=== PATIENT | female | born 1970 | race Caucasian/White ===

== ENCOUNTER 2021-05-07 16:04 | Emergency (ER) | payer MEDICAID, SELFPAY ==
[2021-05-07] VITALS (7 sets, daily range): BP systolic 109–123; BP diastolic 70–85; PULSE 64–88; RESP 15–98; TEMP 36.7; O2SAT 94–100; BMI 19.5
--- NOTE | 2021-05-07 17:07 | ECG_ITS ---
[facility] Test Date: 2021-05-07 Pat Name: Allison Watts Department: Room: Gender: Female Cardiology Rn: : 1970 Requested By: Ahsan Hurtado Order Number: [id number] Reading MD: ANNIE PABON Measurements Intervals [place] Rate: 100 P: 76 [place]: 98 QRS: 71 QRSD: 94 T: 48 QT: 340 QTc: 439 Interpretive Statements SINUS TACHYCARDIA WITH SHORT [place] INTERVAL INCOMPLETE RIGHT BUNDLE BRANCH BLOCK [90+ ms QRS DURATION, TERMINAL R IN V1/V2, 40+ ms S IN I/aVL/V4/V5/V6] NONSPECIFIC ST & T-WAVE ABNORMALITY ABNORMAL RHYTHM ECG No previous ECG available for comparison Electronically Signed On 05-07-2021 20:02:47 CDT by ANNIE PABON [email or web address]
--- NOTE | 2021-05-07 17:07 | XRR_ITS ---
PROCEDURE INFORMATION: Exam: XR Chest Exam date and time: 05/07/2021 5:07 PM Age: 50 years old Clinical indication: Pain; Left-sided; Additional info: Chest pain TECHNIQUE: Imaging protocol: XR of the chest. Views: 1 view. Total images: 1 [place]PAR[place] [facility] [place] 2 views 06/17/2019 3:40 PM FINDINGS: Lungs: No visible active interstitial or alveolar airspace disease. Hyperinflation and query history of reactive airway disease/asthma/chronic bronchitis. Pleural spaces: Unremarkable. No pleural effusion. No pneumothorax. Heart/Mediastinum: Unremarkable. No cardiomegaly. Bones/joints: Scoliosis. Organs: Status post cholecystectomy. XR/XR chest 1V portable [id number] IMPRESSION: 1. Nonacute. 2. Hyperinflation.
--- NOTE | 2021-05-07 17:32 | PC.NURSE ---
PATIENT CONNECTED TO SPEECH TEACHER.
--- NOTE | 2021-05-07 17:44 | ED_ITS ---
Documented by User: Ahsan Valdez DO 05/13/21 07:23 HPI - Chest Pain General: Chief Complaint: Chest Pain Stated Complaint: Chest pain Time Seen by Provider: 05/07/21 17:18 History of Present Illness: HPI narrative: 50-year-old female presents emergency room complaining of chest and abdominal pain that began around 1 PM today. Patient denies any radiation of the pain she does have some nausea. Patient reports that she has an excessively high pain tolerance and cannot rate the pain for us. She denies any dyspnea associated with this. She not note any aggravating or relieving factors. MD complaint: chest pain Onset (ago): week(s) Timing of current episode: episodic Onset: during rest Pain location: substernal Pain radiation: none Severity: moderate Quality: aching and heaviness Relieving factors: nothing Exacerbating factors: nothing Associated symptoms: Deny abdominal pain, diaphoresis, dyspnea, fever(s), leg edema, nausea, palpitations, sense of impending doom, syncope or vomiting Treatment prior to arrival: none Review of Systems Const: Denies: fever(s) or diaphoresis ENMT: Denies: throat pain, ear or mastoid pain, nasal discharge or nasal congestion Card: Denies: palpitations or syncope Resp: Denies: dyspnea GI: Denies: abdominal pain, nausea or vomiting : Denies: flank pain, difficulty voiding, dysuria, urinary frequency or urinary urgency Skin/Breast: Denies: rash or pruritus Physical Exam Const: COMMON NORMALS: no acute distress GENERAL APPEARANCE: cooperative and comfortable ORIENTATION/CONSCIOUSNESS: Yes awake, Yes oriented to person, Yes oriented to place and Yes oriented to time HENMT: COMMON NORMALS: normocephalic and atraumatic HEAD & SCALP: normocephalic and atraumatic Neck/C-Spine: COMMON NORMALS: no JVD Resp: COMMON NORMALS: normal respiratory effort, No retractions, No use of accessory muscles and clear to auscultation bilaterally AUSCULTATION: clear to auscultation bilaterally Cardio: COMMON NORMALS: no JVD, regular rate, regular rhythm and No murmurs present (Cardio) RATE: regular rate RHYTHM: regular rhythm GI: COMMON NORMALS: Soft to palpation and No hepatosplenomegaly present AUSCULTATION: Yes normoactive bowel sounds PALPATION: Yes Soft to palpation, No Tenderness to palpation present (GI), No Guarding due to palpation present (GI) and Yes No hepatosplenomegaly present Extremity: COMMON NORMALS: normal to inspection, capillary refill normal, no clubbing, cyanosis or edema, no calf tenderness and no pedal edema Neuro: SENSORIUM/ORIENTATION: Yes oriented to person, Yes oriented to place and Yes oriented to time Skin: COMMON NORMALS: no rashes or lesions noted GENERAL SKIN EXAM: no rashes or lesions noted Course Vital Signs: Vital signs: Vital Signs Temperature 98.1 F 05/07/21 16:39 Pulse Rate 81 05/07/21 21:22 Respiratory Rate 16 05/07/21 21:22 Blood Pressure 120/85 05/07/21 21:22 Pulse Oximetry 97 05/07/21 21:22 MDM - Chest Pain MDM Narrative: Medical decision making narrative: Care turned over to Dr. Ruiz at change of shift see his note from diagnosis disposition Lab Data: Labs: Lab Results 05/07/21 05/07/21 05/07/21 17:40 17:43 17:43 WBC 8.0 10^3/uL 10^3/ uL (4.0-10.0) RBC 4.39 10^6/uL 10^6 /uL (4.1-5.3) Hgb 13.8 g/dL g/dL (11.5-15.3) Hct 41.0 % % (37.0-47.0) MCV 93.4 fl fl (81-99) MCH 31.4 pg pg (28.0-34.0) MCHC 33.7 g/dL g/dL (30.0-36.0) RDW 12.3 % % (12.1-15.1) Plt Count 311 10^3/cmm 10^3 /cmm (130-400) MPV 9.8 fL fL (7.4-10.4) Neut % (Auto) 49.8 % % Lymph % (Auto) 42.9 % % [place] % (Auto) 6.0 % % Eos % (Auto) 0.7 % % Baso % (Auto) 0.5 % % Neut # (Auto) 3.99 10^3/uL 10^3 /uL (1.8-7.7) Lymph # (Auto) 3.4 10^3/uL 10^3/ uL (0.8-4.8) [place] # (Auto) 0.5 10^3/uL 10^3/ uL (0.2-0.9) Eos # (Auto) 0.1 10^3/uL 10^3/ uL (0.0-0.8) Baso # (Auto) 0.0 10^3/uL 10^3/ uL (0.0-0.1) Nucleated RBC % (a uto) 0 % % Nucleated RBCs # 0.0 /100WBC /100W BC D-Dimer 0.31 ug/mIFEU ug/ mIFEU (0-0.59) Sodium 135 mmol/L L mmol /L (136-145) Potassium 4.0 mmol/L mmol/L (3.5-5.1) Chloride 101 mmol/L mmol/L (98-107) Carbon Dioxide 23 mmol/L mmol/L (22-29) Anion Gap 15.0 (5-19) BUN 9 mg/dL mg/dL (6-20) Creatinine 0.6 mg/dL mg/dL (0.5-0.9) GFR Calculation 106.7 mL/min mL/m in (90-130) Glucose 88 mg/dL mg/dL (65-115) Calculated Osmolal ity 278 mOsm/kg L mOs m/kg (285-295) Calcium 8.8 mg/dL mg/dL (8.5-10.5) Total Bilirubin 0.3 mg/dL mg/dL (0.15-1.2) AST 14 U/L U/L (0-32) ALT 8 U/L U/L (0-33) Alkaline Phosphata se 64 IU/L IU/L (35-105) Troponin T Baselin e Troponin T 120 Min [place] Delta Troponin T Total Protein 6.4 g/dL L g/dL (6.6-8.7) Albumin 4.0 g/dL g/dL (3.5-5.2) Globulin 2.4 g/dL g/dL (1.3-4.6) 05/07/21 05/07/21 17:43 20:00 WBC RBC Hgb Hct MCV MCH MCHC RDW Plt Count MPV Neut % (Auto) Lymph % (Auto) [place] % (Auto) Eos % (Auto) Baso % (Auto) Neut # (Auto) Lymph # (Auto) [place] # (Auto) Eos # (Auto) Baso # (Auto) Nucleated RBC % (a uto) Nucleated RBCs # D-Dimer Sodium Potassium Chloride Carbon Dioxide Anion Gap BUN Creatinine GFR Calculation Glucose Calculated Osmolal ity Calcium Total Bilirubin AST ALT Alkaline Phosphata se Troponin T Baselin e 6 ng/L ng/L (0-10) Troponin T 120 Min [place] 7.24 ng/L ng/L (0-10) Delta Troponin T 1.24 ABS# ABS# (0-10) Total Protein Albumin Globulin Discharge Plan Discharge Patient Disposition: Home Clinical Impression: Back pain Condition: Stable Discharge Orders: Discharge ED (Routine); Ordered 05/07/21 Ordered By: Ximena Ruiz Discharge Diet: Advance as tolerated Discharge Activity: Resume usual activity Patient Instructions: Chest Pain (ED), Back Pain (ED) Activity Restrictions/Additional Instructions: Come back to the emergency room you have any worsening chest pain, shortness of breath, palpitation, focal weakness in the arms or legs, or any new concerning complaints. Stand Alone Forms: Work/School Release Sign Out Sign Out Data: Patient Sign Out occurred on 05/07/21 at 18:15. Patient's care was discussed, and care was transferred from to Ximena Ruiz MD. Coding Level of Care Code ED Aircraft Riveter for Chg Fwd Exam Comprehensive Documented by User: Ximena Ruiz MD 05/07/21 21:04 HPI - Chest Pain General: Chief Complaint: Chest Pain Stated Complaint: Chest pain Time Seen by Provider: 05/07/21 17:18 Course Vital Signs: Vital signs: Vital Signs Temperature 98.1 F 05/07/21 16:39 Pulse Rate 81 05/07/21 21:22 Respiratory Rate 16 05/07/21 21:22 Blood Pressure 120/85 05/07/21 21:22 Pulse Oximetry 97 05/07/21 21:22 MDM - Chest Pain MDM Narrative: Medical decision making narrative: 50-year-old female presents the emergency room with left-sided back pain that radiates towards the front. On arrival, patient appears to be in moderate distress. Per nurse, patient almost passed out twice in the ED complaining of back pain radiating to her front chest. Work-up include troponin x2 - today. D-dimer within normal limit. CT chest did not show any signs of dissection. At the present time, patient reports symptomatic improvement. Was observed in the emergency room with hemodynamically stable. No suspicion for cardiac sudden cardiac . EKG non-ischemic. Patient tolerated PO in the Ed. Disposition: Discharge. Patient counseled regarding diagnostic impression, treatment plan. Patient given ED strict return precautions to return for continuation, worsening, or development of new symptoms. Instructed to f/u w/ PCP regarding symptoms today. Patient verbalized understanding. Lab Data: Labs: Lab Results 05/07/21 05/07/21 05/07/21 17:40 17:43 17:43 WBC 8.0 10^3/uL 10^3/ uL (4.0-10.0) RBC 4.39 10^6/uL 10^6 /uL (4.1-5.3) Hgb 13.8 g/dL g/dL (11.5-15.3) Hct 41.0 % % (37.0-47.0) MCV 93.4 fl fl (81-99) MCH 31.4 pg pg (28.0-34.0) MCHC 33.7 g/dL g/dL (30.0-36.0) RDW 12.3 % % (12.1-15.1) Plt Count 311 10^3/cmm 10^3 /cmm (130-400) MPV 9.8 fL fL (7.4-10.4) Neut % (Auto) 49.8 % % Lymph % (Auto) 42.9 % % [place] % (Auto) 6.0 % % Eos % (Auto) 0.7 % % Baso % (Auto) 0.5 % % Neut # (Auto) 3.99 10^3/uL 10^3 /uL (1.8-7.7) Lymph # (Auto) 3.4 10^3/uL 10^3/ uL (0.8-4.8) [place] # (Auto) 0.5 10^3/uL 10^3/ uL (0.2-0.9) Eos # (Auto) 0.1 10^3/uL 10^3/ uL (0.0-0.8) Baso # (Auto) 0.0 10^3/uL 10^3/ uL (0.0-0.1) Nucleated RBC % (a uto) 0 % % Nucleated RBCs # 0.0 /100WBC /100W BC D-Dimer 0.31 ug/mIFEU ug/ mIFEU (0-0.59) Sodium 135 mmol/L L mmol /L (136-145) Potassium 4.0 mmol/L mmol/L (3.5-5.1) Chloride 101 mmol/L mmol/L (98-107) Carbon Dioxide 23 mmol/L mmol/L (22-29) Anion Gap 15.0 (5-19) BUN 9 mg/dL mg/dL (6-20) Creatinine 0.6 mg/dL mg/dL (0.5-0.9) GFR Calculation 106.7 mL/min mL/m in (90-130) Glucose 88 mg/dL mg/dL (65-115) Calculated Osmolal ity 278 mOsm/kg L mOs m/kg (285-295) Calcium 8.8 mg/dL mg/dL (8.5-10.5) Total Bilirubin 0.3 mg/dL mg/dL (0.15-1.2) AST 14 U/L U/L (0-32) ALT 8 U/L U/L (0-33) Alkaline Phosphata se 64 IU/L IU/L (35-105) Troponin T Baselin e Troponin T 120 Min [place] Delta Troponin T Total Protein 6.4 g/dL L g/dL (6.6-8.7) Albumin 4.0 g/dL g/dL (3.5-5.2) Globulin 2.4 g/dL g/dL (1.3-4.6) 05/07/21 05/07/21 17:43 20:00 WBC RBC Hgb Hct MCV MCH MCHC RDW Plt Count MPV Neut % (Auto) Lymph % (Auto) [place] % (Auto) Eos % (Auto) Baso % (Auto) Neut # (Auto) Lymph # (Auto) [place] # (Auto) Eos # (Auto) Baso # (Auto) Nucleated RBC % (a uto) Nucleated RBCs # D-Dimer Sodium Potassium Chloride Carbon Dioxide Anion Gap BUN Creatinine GFR Calculation Glucose Calculated Osmolal ity Calcium Total Bilirubin AST ALT Alkaline Phosphata se Troponin T Baselin e 6 ng/L ng/L (0-10) Troponin T 120 Min [place] 7.24 ng/L ng/L (0-10) Delta Troponin T 1.24 ABS# ABS# (0-10) Total Protein Albumin Globulin Imaging Data^: Other Imaging: Radiologist's impression: [employer] [place] [id number] Scan ReportSigned Patient: Allison Watts #: [id number]: 1970Acct#:[id number]/Sex: 50 / FADM Date: 05/07/21Loc: ERRoom/Bed:Attending Dr: Ordering Provider/Ordering MD: Ximena Ruiz MD Date of Service: 05/07/21 Procedure(s): CT angio chest w abd pel w con Accession Number(s): [id number] Report Number: [id number] PROCEDURE INFORMATION: Exam: CTA Chest With amd without Contrast Exam date and time: 05/07/2021 6:28 PM Age: 50 years old Clinical indication: Abdominal tenderness; Abdominal pain; Shortness of breath; Sternal or substernal pain; Prior surgery; Surgery type: Gb, ; Additional info: Evaluate for dissection TECHNIQUE: Imaging protocol: Computed tomographic angiography of the chest with contrast. 3D rendering (Not supervised by radiologist): MIP and/or 3D reconstructed images were created by the technologist. Total images: 670 Radiation optimization: All CT scans at this facility use at least one of these dose optimization techniques: automated exposure control; mA and/or kV adjustment per patient size (includes targeted exams where dose is matched to clinical indication); or iterative reconstruction. Contrast material: OMNI 350; Contrast volume: 95 ml; Contrast route: INTRAVENOUS (IV); COMPARISON: CR (CHEST, ) 05/07/2021 5:18 PM RADIATION DOSE METRICS: Total DLP (mGy-cm): 962.97 FINDINGS: Pulmonary arteries: No visible evidence of pulmonary embolism/pulmonary arterial thrombus. Aorta: The thoracic aorta is nonaneurysmal. No visible intimal flap or dissection. Lungs: No visible active interstitial or alveolar airspace disease. Minimal centrilobular emphysema. Pleural spaces: Unremarkable. No pneumothorax. No pleural effusion. Heart: Cardiac size within normal limits. No visible pericardial effusion. No visible coronary artery disease. Lymph nodes: No visible evidence of active mediastinal or hilar lymphadenopathy. Bones/joints: No visible active or acute osseous pathology. Minimal scoliosis. Soft tissues: Unremarkable. IMPRESSION: No visible evidence of active cardiopulmonary/cardiothoracic pathologic process. PROCEDURE INFORMATION: Exam: CT Abdomen And Pelvis With Contrast Exam date and time: 05/07/2021 6:28 PM Age: 50 years old Clinical indication: Abdominal tenderness; Abdominal pain; Shortness of breath; Sternal or substernal pain; Prior surgery; Surgery type: Gb, ; Additional info: Evaluate for dissection TECHNIQUE: Imaging protocol: Computed tomography of the abdomen and pelvis with contrast. Radiation optimization: All CT scans at this facility use at least one of these dose optimization techniques: automated exposure control; mA and/or kV adjustment per patient size (includes targeted exams where dose is matched to clinical indication); or iterative reconstruction. Contrast material: OMNI 350; Contrast volume: 95 ml; Contrast route: INTRAVENOUS (IV); COMPARISON: CR (CHEST, ) 05/07/2021 5:18 PM RADIATION DOSE METRICS: Total DLP (mGy-cm): 962.97 FINDINGS: Liver: No visible hepatic mass or cystic structure. Gallbladder and bile ducts: Status post cholecystectomy. Pancreas: Pancreas is unremarkable. No visible pancreatic ductal ectasia. Spleen: Small splenule. Spleen otherwise unremarkable. Adrenal glands: Adrenal glands unremarkable. Kidneys and ureters: No hydronephrosis or perinephric fluid. No visible nephrolithiasis or visible ureterolithiasis. Stomach and bowel: Findings raising suspicion for active gastroenteritis with gastric mucosal thickening, duodenal, and jejunal small bowel mucosal thickening with increased enhancement. Nonobstructive bowel pattern. No visible associated significant adynamic or reactive ileus. No findings of diverticulosis coli or diverticulitis. Appendix: The appendix is visualized and appears noninflamed. Intraperitoneal space: No visible evidence of mesenteric lymphadenitis or active mesenteritis/panniculitis. No visible pneumoperitoneum or intraperitoneal ascites. Vasculature: The abdominal aorta is nonaneurysmal. No intimal flap or dissection. Lymph nodes: No current visible evidence of active mesenteric or retroperitoneal lymphadenopathy. Urinary bladder: Urinary bladder unremarkable. Reproductive: Unremarkable as visualized. Bones/joints: No visible active or acute osseous pathology. Mild scoliotic curvature. Soft tissues: Unremarkable. CT/CT angio chest w abd pel w con IMPRESSION: Findings raising suspicion for active gastroenteritis with gastric mucosal thickening, duodenal, and jejunal small bowel mucosal thickening with increased enhancement. Radiation Dose CTDIVOL = (mGy): DLP = 962.97~962.97 (mGy-cm) Dictated By:Sharon Borrego By:Sharon Borrego Date/Time:05/07/21 1 910DD/ 190 [facility] [place] [address] [id number] ReportSigned Patient: Allison Watts #: [id number]: 1970Acct#:[id number]/Sex: 50 / FADM Date: 05/07/21Loc: ERRoom/Bed:Attending Dr: Ordering Provider/Ordering MD: Ahsan Valdez DO Date of Service: 05/07/21 Procedure(s): XR chest 1V portable [id number] Accession Number(s): [id number] Report Number: [id number] PROCEDURE INFORMATION: Exam: XR Chest Exam date and time: 05/07/2021 5:07 PM Age: 50 years old Clinical indication: Pain; Left-sided; Additional info: Chest pain TECHNIQUE: Imaging protocol: XR of the chest. Views: 1 view. Total images: 1 COMPARISON: CR [facility] [place] Chest 2 views 06/17/2019 3:40 PM FINDINGS: Lungs: No visible active interstitial or alveolar airspace disease. Hyperinflation and query history of reactive airway disease/asthma/chronic bronchitis. Pleural spaces: Unremarkable. No pleural effusion. No pneumothorax. Heart/Mediastinum: Unremarkable. No cardiomegaly. Bones/joints: Scoliosis. Organs: Status post cholecystectomy. XR/XR chest 1V portable [id number] IMPRESSION: 1. Nonacute. 2. Hyperinflation. Dictated By:Sharon Borrego By:Sharon Borrego Date/Time:05/07/21 1741DD/ 1740 Discharge Plan Discharge Patient Disposition: Home Clinical Impression: Back pain Condition: Stable Discharge Orders: Discharge ED (Routine); Ordered 05/07/21 Ordered By: Ximena Ruiz Discharge Diet: Advance as tolerated Discharge Activity: Resume usual activity Patient Instructions: Chest Pain (ED), Back Pain (ED) Activity Restrictions/Additional Instructions: Come back to the emergency room you have any worsening chest pain, shortness of breath, palpitation, focal weakness in the arms or legs, or any new concerning complaints. Stand Alone Forms: Work/School Release Sign Out Sign Out Data: Patient Sign Out occurred on 05/07/21 at 18:15. Patient's care was discussed, and care was transferred from to Ximena Ruiz MD. Coding Level of Care Code ED Aircraft Riveter for Chg Fwd Exam Comprehensive
[2021-05-07 17:55] LABS: Basophils % 0.5 %; Eosinophils # 0.1 10^3/uL (0.0-0.8); Eosinophils % 0.7 %; Hemoglobin 13.8 g/dL (11.5-15.3); Lymphocytes # 3.4 10^3/uL (0.8-4.8); Lymphocytes % 42.9 %; Mean Corpuscular HGB Conc 33.7 g/dL (30.0-36.0); Mean Corpuscular Hemoglobin 31.4 pg (28.0-34.0); Mean Corpuscular Volume 93.4 fl (81-99); Mean Platelet Volume 9.8 fL (7.4-10.4); Monocytes # 0.5 10^3/uL (0.2-0.9); Neutrophils # 3.99 10^3/uL (1.8-7.7); Neutrophils % 49.8 %; Nucleated Red Blood Cells % 0 %; Platelet Count 311 10^3/cmm (130-400); Red Blood Count 4.39 10^6/uL (4.1-5.3); Red Cell Distribution Width 12.3 % (12.1-15.1)
[2021-05-07 18:12] LABS: Alanine Aminotransferase 8 U/L (0-33); Alkaline Phosphatase 64 IU/L (35-105); Blood Urea Nitrogen 9 mg/dL (6-20); Calcium 8.8 mg/dL (8.5-10.5); Carbon Dioxide 23 mmol/L (22-29); Chloride 101 mmol/L (98-107); Globulin 2.4 g/dL (1.3-4.6); Glomerular Filtration Rate 106.7 mL/min (90-130); Glucose 88 mg/dL (65-115); Osmolality Calculated 278 mOsm/kg (285-295); Sodium 135 mmol/L (136-145); Total Bilirubin 0.3 mg/dL (0.15-1.2); Total Protein 6.4 g/dL (6.6-8.7)
[2021-05-07 18:14] LABS: Aspartate Amino Transferase 14 U/L (0-32); Troponin(5th) Baseline 6 ng/L (0-10)
--- NOTE | 2021-05-07 18:28 | CTR_ITS ---
PROCEDURE INFORMATION: Exam: CTA Chest With amd without Contrast Exam date and time: 05/07/2021 6:28 PM Age: 50 years old Clinical indication: Abdominal tenderness; Abdominal pain; Shortness of breath; Sternal or substernal pain; Prior surgery; Surgery type: Gb, ; Additional info: Evaluate for dissection TECHNIQUE: Imaging protocol: Computed tomographic angiography of the chest with contrast. 3D rendering (Not supervised by radiologist): MIP and/or 3D reconstructed images were created by the technologist. Total images: 670 Radiation optimization: All CT scans at this facility use at least one of these dose optimization techniques: automated exposure control; mA and/or kV adjustment per patient size (includes targeted exams where dose is matched to clinical indication); or iterative reconstruction. Contrast material: OMNI 350; Contrast volume: 95 ml; Contrast route: INTRAVENOUS (IV); COMPARISON: CR (CHEST, ) 05/07/2021 5:18 PM RADIATION DOSE METRICS: Total DLP (mGy-cm): 962.97 FINDINGS: Pulmonary arteries: No visible evidence of pulmonary embolism/pulmonary arterial thrombus. Aorta: The thoracic aorta is nonaneurysmal. No visible intimal flap or dissection. Lungs: No visible active interstitial or alveolar airspace disease. Minimal centrilobular emphysema. Pleural spaces: Unremarkable. No pneumothorax. No pleural effusion. Heart: Cardiac size within normal limits. No visible pericardial effusion. No visible coronary artery disease. Lymph nodes: No visible evidence of active mediastinal or hilar lymphadenopathy. Bones/joints: No visible active or acute osseous pathology. Minimal scoliosis. Soft tissues: Unremarkable. IMPRESSION: No visible evidence of active cardiopulmonary/cardiothoracic pathologic process. PROCEDURE INFORMATION: Exam: CT Abdomen And Pelvis With Contrast Exam date and time: 05/07/2021 6:28 PM Age: 50 years old Clinical indication: Abdominal tenderness; Abdominal pain; Shortness of breath; Sternal or substernal pain; Prior surgery; Surgery type: Gb, ; Additional info: Evaluate for dissection TECHNIQUE: Imaging protocol: Computed tomography of the abdomen and pelvis with contrast. Radiation optimization: All CT scans at this facility use at least one of these dose optimization techniques: automated exposure control; mA and/or kV adjustment per patient size (includes targeted exams where dose is matched to clinical indication); or iterative reconstruction. Contrast material: OMNI 350; Contrast volume: 95 ml; Contrast route: INTRAVENOUS (IV); COMPARISON: CR (CHEST, ) 05/07/2021 5:18 PM RADIATION DOSE METRICS: Total DLP (mGy-cm): 962.97 FINDINGS: Liver: No visible hepatic mass or cystic structure. Gallbladder and bile ducts: Status post cholecystectomy. Pancreas: Pancreas is unremarkable. No visible pancreatic ductal ectasia. Spleen: Small splenule. Spleen otherwise unremarkable. Adrenal glands: Adrenal glands unremarkable. Kidneys and ureters: No hydronephrosis or perinephric fluid. No visible nephrolithiasis or visible ureterolithiasis. Stomach and bowel: Findings raising suspicion for active gastroenteritis with gastric mucosal thickening, duodenal, and jejunal small bowel mucosal thickening with increased enhancement. Nonobstructive bowel pattern. No visible associated significant adynamic or reactive ileus. No findings of diverticulosis coli or diverticulitis. Appendix: The appendix is visualized and appears noninflamed. Intraperitoneal space: No visible evidence of mesenteric lymphadenitis or active mesenteritis/panniculitis. No visible pneumoperitoneum or intraperitoneal ascites. Vasculature: The abdominal aorta is nonaneurysmal. No intimal flap or dissection. Lymph nodes: No current visible evidence of active mesenteric or retroperitoneal lymphadenopathy. Urinary bladder: Urinary bladder unremarkable. Reproductive: Unremarkable as visualized. Bones/joints: No visible active or acute osseous pathology. Mild scoliotic curvature. Soft tissues: Unremarkable. CT/CT angio chest w abd pel w con IMPRESSION: Findings raising suspicion for active gastroenteritis with gastric mucosal thickening, duodenal, and jejunal small bowel mucosal thickening with increased enhancement. Radiation Dose CTDIVOL = (mGy): DLP = 962.97~962.97 (mGy-cm)
[2021-05-07] MEDS: fentaNYL 50 mcg/mL INJ 2mL IVP (18:35)
[2021-05-07] MEDS: iohexol 350 mg/mL 100 mL Btl IV (18:39)
[2021-05-07 18:44] LABS: D Dimer 0.31 ug/mIFEU (0-0.59)
[2021-05-07] MEDS: acetaminophen 500 mg Tablet 1000 MG PO (19:03)
[2021-05-07] MEDS: sodium chloride 0.9% 1,000 ML 999 ML IV ×2 (19:11→20:38)
[2021-05-07 20:49] LABS: Troponin 5 2HR 7.24 ng/L (0-10); Troponin 5 2HR Delta 1.24 ABS# (0-10)
--- NOTE | 2021-05-08 10:03 | DCPLANNER ---
Addendum entered by Radha Hall 05/09/21 09:00: Patient called case management manager requesting help in getting established with a primary care physician. manager lsw called [facility] medicine, spoke with Ilda, gave clinic patients information. A follow up appointment was scheduled for Friday, May 21, 2021, at 10:[address] Mathur. manager lsw called patient and gave patient the appointment information. manager lsw will mail patient the financial institution branch manager applications for the hospital to fill out and turn back in. Patient also requested that case management manager send patient POA paperwork. manager lsw will mail patient all of this paperwork. Original Note: manager lsw had message to speak with patient about getting a primary care physician. manager lsw called patient, unable to speak with patient at this time. manager lsw did speak with patients partner, and left a message for patient to return case management associate phone call.
--- NOTE | 2021-06-20 15:34 | DCPLANNER ---
Patient had a follow up appointment scheduled with Dr. Plata at [facility] - appointment was cancelled.
== END 2021-05-07 21:24 | disposition home or self-care (01) ==
PROVIDERS: Family Medicine; Emergency Provider Emergency Medicine
DX: M54.9 Dorsalgia, unspecified (principal)
CPT/HCPCS: 71045; 71275; 74177; 80053; 84484; 85025; 85378; 93005; 96361; 96374; 96375; 99284; J3010; J7030; Q9967